=== PATIENT | male | born 1950 ===

== ENCOUNTER 2023-05-06 11:45 | Outpatient (REF) | payer OTHER, SELFPAY ==
[2023-05-06 13:37] LABS: Estimated Average Glucose 120 mg/dL; Hemoglobin A1c % 5.8 % (<6.0)
== END 2023-05-06 11:46 | disposition home or self-care (01) ==
LOC: HO.HHCL 11:45
PROVIDERS: Visit Provider Nurse Practitioner Primary Care
DX: R73.09 Other abnormal glucose (principal)
CPT/HCPCS: 36415; 83036

== ENCOUNTER 2024-02-09 10:41 | Emergency (ER) | payer OTHER, SELFPAY ==
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
[2024-02-09 10:43] VITALS: BP 153/88; PULSE 90; RESP 18; TEMP 36.9; O2SAT 96; BMI 27.8
--- OUTSIDE RECORDS SUMMARY | 2024-02-09 10:50 | XMS_ITS | Patient Health Record ---
Author Organization [facility] Address [address] [place] [address] Care Team Providers Care Speech Instructor Name Role Phone STEFAN MORALES N.P. Primary Care Provider Charlie Marie Jr ALLERGIES No Known Allergies REASON FOR REFERRAL No Information MEDICATIONS Medication SIG (Take, Route, Frequency, Duration) Notes Start Date End Date Status Enalapril Maleate 20 MG 1 tablet Once a day Active MiraLax (colon prep) 17 GM/SCOOP mixed with Gatorade or Crystal Light Orally begin at 5:00 p.m. the day before the procedure for 1 day 08/29/2022 Active Atorvastatin Calcium 80 MG 1 tablet Once a day Active IMMUNIZATIONS Vaccine Route Administration Date Status Comme nts Influenza Unknown 08/29/2022 Refused SOCIAL HISTORY Tobacco Use: Social History Observation Description Date Details (start date - stop date) Never Smoker NA - NA Sex Assigned At : Social History Observation Description Sex Assigned At Unknown Tobacco Use/Smoking Question Answer Notes Patient is a nonsmoker Alcohol Screen Question Answer Notes Did you have a drink containing alcohol in the p ast year? No Points 0 Interpretation Negative PROBLEMS Problem Type ICD Code Onset Dates Problem Status W/U Status Risk SNOMED Code Notes Problem Colon cancer screening (Z12.11) Active confirmed 159266418 Problem Encounter for other preprocedural examination (Z01.818) Active confirmed [id number] PLAN OF TREATMENT Future Test Test Name Order Date COLONOSCOPY 08/29/2022 Insurance Providers Payer Name Payer Address Payer Phone Subscriber Number Group Number Insured Name Patient Relationship to Insured Coverage Start Date Coverage End Date [facility] [address] [place] [address] [phone] [id number] [facility] - patient is the insured MEDICAL (GENERAL) HISTORY Medical History History ICD Code Hypertension Hyperlipidemia Kidney cysts Colon polyps, colonoscopy 2018, 3 polyps , five-year followup Surgical History Surgery Date(Month/Year) Hernia repair
--- OUTSIDE RECORDS SUMMARY | 2024-02-09 10:50 | XMS_ITS ---
Author Organization [facility] Address [address] [place] [address] Care Team Providers Care Golf Cart Assembler Name Role Phone STEFAN MORALES N.P. Primary Care Provider Charlie Marie Jr [phone] REASON FOR VISIT screening Encounters Encounter Location Date Provider Diagnosis [facility] [address] [place] [id number] 12/06/2022 Charlie Basilio Jr PLAN OF TREATMENT No Information
--- OUTSIDE RECORDS SUMMARY | 2024-02-09 10:50 | XMS_ITS ---
Author Organization [facility] Address [address] [place] [address] Care Team Providers Care Installers Mechanical Name Role Phone STEFAN MORALES N.P. Primary Care Provider Charlie Marie Jr REASON FOR VISIT screening Encounters Encounter Location Date Provider Diagnosis [facility] [address] [place] [phone] 10/11/2022 Charlie Basilio Jr PLAN OF TREATMENT No Information
--- OUTSIDE RECORDS SUMMARY | 2024-02-09 10:50 | XMS_ITS ---
Author Organization [facility] Address [address] [place] [address] Care Team Providers Care Miniature Train Driver Name Role Phone STEFAN MORALES N.P. Primary Care Provider Charlie Marie Jr REASON FOR VISIT FYI Encounters Encounter Location Date Provider Diagnosis [facility] [address] [place] [address] [place] [address] 12/05/2022 Charlie Basilio Jr PLAN OF TREATMENT No Information
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
[2024-02-09 12:04] VITALS: BP 151/85; PULSE 64; RESP 16; TEMP 36.4; O2SAT 98
[2024-02-09 14:15] VITALS: BP 154/71; PULSE 56; RESP 16; TEMP 36.6; O2SAT 99
[2024-02-09 14:33] VITALS: BP 154/71; PULSE 56; RESP 16; TEMP 36.6; O2SAT 99
== END 2024-02-09 14:54 | disposition home or self-care (01) ==
PROVIDERS: Emergency Provider Emergency Medicine; PCP Nurse Practitioner Primary Care
DX: S60.211A Contusion of right wrist, initial encounter (principal); V43.52XA Car driver injured in collision with other type car in traffic accident, initial encounter; W22.10XA Striking against or struck by unspecified automobile airbag, initial encounter; Y93.9 Activity, unspecified; Y92.410 Unspecified street and highway as the place of occurrence of the external cause; Y99.9 Unspecified external cause status; M25.531 Pain in right wrist; I10 Essential (primary) hypertension; E78.5 Hyperlipidemia, unspecified
CPT/HCPCS: 73110; 73130; 99283; 99284

== ENCOUNTER 2024-09-13 08:30 | Outpatient (REF) | payer OTHER, SELFPAY ==
[2024-09-13 11:43] LABS: Anion Gap 13 (12-20); Blood Urea Nitrogen 11 mg/dL (9-16); Calcium 9.4 mg/dL (8.4-10.2); Carbon Dioxide 28 mmol/L (22-29); Chloride 107 mmol/L (96-108); Cholesterol 178 mg/dL (<200); Estimated Glomerular Filt Rate > 60; Glucose Random 104 mg/dL (60-115); HDL Cholesterol 36 mg/dL (>40); LDL Cholesterol Calculated 95 mg/dL (<100); Potassium 4.1 mmol/L (3.3-5.1); Sodium 144 mmol/L (135-145); Triglycerides 236 mg/dL (<150)
[2024-09-13 11:52] LABS: Creatinine Urine 98.63 mg/dL; Estimated Average Glucose 131 mg/dL; Hemoglobin A1c % 6.2 % (<6.0); Microalbum/Creatinine Ratio Ur 12.1 ug/mg cr (<30)
== END 2024-09-13 08:31 | disposition home or self-care (01) ==
LOC: HO.HHCL 08:30
PROVIDERS: PCP Nurse Practitioner Primary Care; Visit Provider Nurse Practitioner Primary Care
DX: I10 Essential (primary) hypertension (principal); R73.03 Prediabetes; E78.5 Hyperlipidemia, unspecified
CPT/HCPCS: 36415; 80048; 80061; 82043; 82570; 83036